=== PATIENT | female | born 1955 | race Caucasian/White ===

== ENCOUNTER 2016-08-14 18:13 | Inpatient (IN) | payer OTHER ==
[~2016-08-14] VITALS: Ht 154.9 cm; Wt 90.0 kg
[2016-08-14] MEDS ORDERED: SODIUM CHLORIDE 0.9% 1L BAG IV* STA (21:21)
[2016-08-14] MEDS ORDERED: ALBUTEROL 0.5% (NEB) 2.5 MG/0.5 ML AMP INH STA (21:22)
[2016-08-14] MEDS ORDERED: IBUPROFEN 600 MG TAB PO ONE (21:30)
[2016-08-14] MEDS ORDERED: AZITHROMYCIN 500MG/NS (PMX) 250 ML IVPB ONE (21:30)
[2016-08-14] MEDS ORDERED: CEFTRIAXONE 1 GM/50 ML (PMX) 50 ML IVPB ONE (21:30)
[2016-08-14] MEDS ORDERED: LOSA1TAB19 PO (21:52)
[2016-08-14] MEDS ORDERED: CLIN-73 PO (21:53)
[2016-08-14] MEDS ORDERED: MELO-110 PO (21:54)
[2016-08-14] MEDS ORDERED: MOME13HF INHALATION (21:54)
[2016-08-14] MEDS ORDERED: PRAV40TA76 PO (21:55)
[2016-08-14 21:57] LABS: BASOPHILS % 0.1 % (0.0-2.0); EOSINOPHILS % 0.4 % (0.0-7.0); HEMATOCRIT 37.8 % (37.0-47.0); HEMOGLOBIN 12.9 g/dl (12.0-16.0); LYMPHOCYTES # 0.9 10^3/ul (0.8-2.9); LYMPHOCYTES % 15.3 % (15.0-51.0); MEAN CORPUSCULAR HEMOGLOBIN 30.2 pg (29.0-33.0); MEAN CORPUSCULAR HGB CONC 34.1 g/dl (32.0-37.0); MEAN CORPUSCULAR VOLUME 88.5 fl (82.0-101.0); MEAN PLATELET VOLUME 7.9 fl (7.4-10.4); MONOCYTE # 0.5 10^3/ul (0.3-0.9); MONOCYTES % 8.8 % (0.0-11.0); NEUTROPHIL # 4.5 10^3/ul (1.6-7.5); NEUTROPHILS % 75.4 % (39.0-77.0); PLATELET COUNT 233 10^3/UL (140-440); RED BLOOD COUNT 4.27 10^6/ul (4.20-5.40); RED CELL DISTRIBUTION WIDTH 13.9 % (11.5-14.5)
[2016-08-14 21:59] LABS: CONDITION 1
[2016-08-14 22:05] LABS: ALBUMIN 4.3 g/dl (3.3-4.9); CHLORIDE 98 mmol/L (97-110); INR 0.96; PROTIME 12.8 Sec (12.2-14.2)
[2016-08-14 22:06] LABS: PARTIAL THROMBOPLASTIN TIME 30.8 Sec (25.0-35.0); POTASSIUM 3.8 mmol/L (3.5-5.1); SODIUM 137 mmol/L (135-144)
[2016-08-14 22:08] LABS: ALBUMIN/GLOBULIN RATIO 1.13; ALKALINE PHOSPHATASE 84 IU/L (42-121); ANION GAP 19 (8-16); ASPARTATE AMINO TRANSFERASE 33 IU/L (15-46); BILIRUBIN,INDIRECT 0.1 mg/dl (0-1.1); BILIRUBIN,TOTAL 0.1 mg/dl (0.2-1.3); BLOOD UREA NITROGEN 14 mg/dl (7-20); CARBON DIOXIDE 24 mmol/L (21-31); CREATININE 0.58 mg/dl (0.44-1.00); TOTAL PROTEIN 8.1 g/dl (6.1-8.1)
[2016-08-14 22:09] LABS: ALANINE AMINOTRANSFERASE 52 IU/L (13-69); CALCIUM 9.2 mg/dl (8.4-10.2); GLUCOSE 111 mg/dl (70-220)
[2016-08-14 22:20] LABS: TROPONIN-I < 0.012 ng/ml (0.00-0.12)
--- NOTE | 2016-08-14 22:40 | RADRPT ---
PROCEDURE: XR Chest. CLINICAL INDICATION: Cough and fever. Sepsis. TECHNIQUE: Single frontal view. COMPARISON: None. FINDINGS: There is mild atelectasis at the lung bases. The lungs are otherwise clear. The heart size is normal. There is no pleural effusion. There is no pneumothorax. IMPRESSION: 1. Mild atelectasis at the lung bases. 2. Otherwise normal chest x-ray. RPTAT: QQ .Douglas Araujo MD, MD Date Time Electronically viewed and signed by .Douglas Araujo MD, on 08/14/2016 22:40 .R/
[2016-08-14 22:56] LABS: ADD UMIC YES; URINE BILIRUBIN (Dip) NEGATIVE (NEGATIVE); URINE BLOOD (Dip) TRACE (NEGATIVE); URINE COLOR LT. YELLOW (YELLOW); URINE GLUCOSE (Dip) NEGATIVE (NEGATIVE); URINE KETONES (Dip) NEGATIVE (NEGATIVE); URINE LEUKOCYTE ESTERASE (Dip) NEGATIVE (NEGATIVE); URINE NITRITE (Dip) NEGATIVE (NEGATIVE); URINE TOTAL PROTEIN (Dip) NEGATIVE (NEGATIVE); URINE UROBILINOGEN (Dip) 0.2 E.U./dL (0.1-1.0)
--- NOTE | 2016-08-14 23:01 | ERA ---
ER Documentation Chief Complaint Date/Time DATE: 08/14/16 TIME: 22:54 Chief Complaint fever, sob and chest wall congestion for 10 days, 3rd day of atb today HPI 61-year-old woman presents with cough, congestion, fever, shortness of breath for about 1 week. She states she has been using antibiotics intermittently for the last few days that she had leftover at home. She has had no calf or leg swelling, no chest pain, no sore throat or difficulty swallowing. Patient denies abdominal pain, vomiting, or diarrhea. Patient has had no sick contacts or recent travel. ROS All systems reviewed and are negative except as per history of present illness. Medications Home Meds Reported Medications Pravastatin Sodium* (Pravastatin Sodium*) 40 Mg Tablet, 40 MG PO DAILY, TAB 08/14/16 Mometasone-Formoterol (Dulera) 200-5 Mcg/Inh - 13 Gm Hfa.aer.ad, 1 PUFFS INHALATION BID, #1 INHALER 08/14/16 Meloxicam* (Mobic*) 15 Mg Tablet, 15 MG PO DAILY, #30 TAB 08/14/16 Clindamycin Hcl* (Clindamycin Hcl*) 300 Mg Capsule, 300 MG PO Q8, CAP 08/14/16 Losartan-Hydrochlorothiazide (Losartan-HCTZ) 50-12.5 Mg Tab, 1 TAB PO DAILY, TAB 08/14/16 Allergies Allergies: Coded Allergies: codeine (Unverified Allergy, Unknown, 08/14/16) PMhx/Soc Hypertension, borderline diabetes mellitus History of Surgery: Yes (CHOLECYSTECTOMY 1990) Anesthesia Reaction: No Hx Neurological Disorder: No Hx Respiratory Disorders: No Hx Cardiac Disorders: Yes (HTN, DYSLIPIDEMIA) Hx Psychiatric Problems: No Hx Alcohol Use: No Hx Substance Use: No Hx Tobacco Use: No Smoking Status: Never smoker FmHx Family History: No diabetes Physical Exam Vitals Vital Signs Date Time Temp Pulse Resp B/P Pulse Ox O2 Delivery O2 Flow Rate FiO2 08/14/16 21:31 90 22 96 21 08/14/16 21:15 102.4 86 18 127/59 100 08/14/16 18:59 102.4 100 23 145/78 99 Physical Exam GENERAL: Well-developed, well-nourished, febrile, dehydrated, tachypnea HEENT: Dry mucous membranes, positive nasal congestion and rhinorrhea, pink conjunctiva, no cervical spine tenderness or step-off deformities, no goiter, no jaundice or icterus, extraocular movements intact without pain. No submandibular induration, and no pharyngeal erythema NEURO: Alert and oriented 3, cranial nerves II through XII intact bilaterally, pupils equal round reactive to light, no focal deficits or facial asymmetry, sensation intact distally Strength 5/5 in upper and lower extremities bilaterally CARDIAC: Tachycardic and regular, no murmurs rubs or gallops LUNGS: Bibasilar crackles and mild diffuse wheezing, no stridor ABDOMEN: Soft nontender, no guarding, no rigidity, no rebound, no psoas sign no obturator sign. Normoactive bowel sounds SKIN: Warm and dry to touch, no abrasions, contusions, or hematomas, no lacerations, no ecchymosis, no target lesions, and without ulcers EXTREMITIES: No clubbing cyanosis or edema, calves are bilaterally symmetrical, no Homans sign, no popliteal cord sign. Distal pulses equal and bilateral PSYCH: Normal affect without agitation or irritability Result Diagram: 08/14/16211908/14/162119 Results 24 hrs Laboratory Tests Test 08/14/16 21:20 Activated Partial Thromboplast Time 30.8Sec Alanine Aminotransferase (ALT/SGPT) 52IU/L Albumin 4.3g/dl Albumin/Globulin Ratio 1.13 Alkaline Phosphatase 84IU/L Anion Gap 19 Aspartate Amino Transf (AST/SGOT) 33IU/L Basophils # 0.010^3/ul Basophils % 0.1% Blood Urea Nitrogen 14mg/dl Calcium Level 9.2mg/dl Carbon Dioxide Level 24mmol/L Chloride Level 98mmol/L Creatinine 0.58mg/dl Direct Bilirubin 0.00mg/dl Eosinophils # 0.010^3/ul Eosinophils % 0.4% Globulin 3.80g/dl Glucose Level 111mg/dl Hematocrit 37.8% Hemoglobin 12.9g/dl INR International Normalized Ratio 0.96 Indirect Bilirubin 0.1mg/dl Lactic Acid Level 2.3mmol/L Lipase 61U/L Lymphocytes # 0.910^3/ul Lymphocytes % 15.3% Mean Corpuscular Hemoglobin 30.2pg Mean Corpuscular Hemoglobin Concent 34.1g/dl Mean Corpuscular Volume 88.5fl Mean Platelet Volume 7.9fl Monocytes # 0.510^3/ul Monocytes % 8.8% Neutrophils # 4.510^3/ul Neutrophils % 75.4% Nucleated Red Blood Cells # 0.010^3/ul Nucleated Red Blood Cells % 0.0/100WBC Platelet Count 32217^3/UL Potassium Level 3.8mmol/L Prothrombin Time 12.8Sec Prothrombin Time Ratio 1.0 Red Blood Count 4.2710^6/ul Red Cell Distribution Width 13.9% Sodium Level 137mmol/L Total Bilirubin 0.1mg/dl Total Protein 8.1g/dl Troponin I < 0.012ng/ml White Blood Count 6.010^3/ul Current Medications Medications (Trade) Dose Ordered Sig/Elaine Route PRN Reason Start Time Stop Time Status Last Admin Dose Admin Sodium Chloride 3000 ml 3,000 ml BOLUS OVER 2 HOURS STAT IV* 08/14/16 21:21 08/14/16 21:23 DC 08/14/16 21:41 Ceftriaxone Sodium 50 ml @ 100 mls/hr ONCE ONCE IVPB 08/14/16 21:30 08/14/16 21:59 DC 08/14/16 21:40 Azithromycin (Zithromax 500mg/ NS (Pmx)) 250 ml @ 250 mls/hr ONCE ONCE IVPB 08/14/16 21:30 08/14/16 22:29 DC 08/14/16 21:40 Ibuprofen (Motrin) 600 mg ONCE ONCE PO 08/14/16 21:30 08/14/16 21:31 DC 08/14/16 21:40 Albuterol (Proventil 0.5% (Neb)) 5 mg ONCE STAT INH 08/14/16 21:22 08/14/16 21:23 DC 08/14/16 21:31 Procedures/MDM IV line was established patient was placed on cardiac rehabilitation program director rhythm strip revealed a sinus tachycardia at 100 bpm with upright P and T waves. Patient was febrile. Blood and urine cultures have been ordered results are pending I will follow-up. I administered about 3 L normal saline intravenously, ceftriaxone 1 g IV, azithromycin 500 mg IV, albuterol 10 mg via nebulizer, and ibuprofen 600 mg p.o. for fever. EKG performed, read by me: 89 bpm, normal sinus rhythm, normal axis, no acute ST segment changes, narrow QRS complex, with good R-wave progression in precordial leads. One view chest x-ray performed, read by me there is atelectatic changes bilaterally with the left lower lobe infiltrate, no pneumothorax, no end of the diaphragm. CBC is unremarkable, electrolytes are within normal limits, liver function tests were normal, troponin was negative. Lactic acid elevated at 2.3. Influenza AB swabs have also been ordered results are pending I will follow-up. Patient's infectious symptoms have not stabilized and the patient is at risk of rapid decompensation. The patient will be admitted for careful hydration, antibiotic therapy, and infectious source control. Severe Sepsis Assessment: Infectious Source: Pulmonary Severe Sepsis Managment: Blood Cultures X 2 before broad spectrum antibiotics initiated within 3 hours of recognition. 30 ml/kg NS bolus Completed Initial Lactate: 2.3 Repeat Lactate pending Critical Care: Time: 30 minutes, this was time separate from other procedures Treatments/Evaluations: Emergent fluid management, while maintaining close respiratory support. Immediate broad spectrum antibiotic therapy. Simultaneous assessment for possible sources in order to direct therapy. Consideration for invasive and chemical support to prevent respiratory or cardiac collapse. Septic Shock Assessment (1 hour post 30 ml/kg fluid bolus): Hypotension (SBP < 90 or 40 mmHg drop, MAP < 65): No Lactic acid > 4.0 No Perfusion Reassessment for Septic Shock: Temp afebrile, Pulse 70, RR 16, BP 120/80 Heart Exam: Regular rate Lung Exam: No Crackles Capillary Refill: Less than 2 Peripheral Pulses: Radially present Skin: Warm and pink I considered further perfusion assessment with CVP measurement, SCVO2, bedside ultrasound volume assessment, passive leg raise, trial of further fluid bolus. And preceded with IV fluids and IV antibiotic Accepting Care Team: Current data and ongoing care discussed. Time: Time of admission Primary Provider: Dr. Jalloh out of [facility] Consulting: Pulmonology Outstanding Data: none Departure Diagnosis: Primary Impression: Sepsis Qualified Code: A41.9 - Sepsis, due to unspecified organism Additional Impressions: Reactive airway disease Qualified Code: J45.41 - Reactive airway disease, moderate persistent, with acute exacerbation Pneumonia Qualified Code: J18.9 - Pneumonia of left lower lobe due to infectious organism Condition: CHARLES Mora MD Aug 14, 2016 23:00
[2016-08-14 23:12] LABS: SQUAMOUS EPITHELIAL CELL,UR RARE; URINE RBCS 0-2 /HPF (0)
[2016-08-15 03:06] VITALS: TEMP 98.7
[2016-08-15 04:23] VITALS: Ht 154.9 cm; Wt 90.0 kg
[2016-08-15 04:57] VITALS: BP 145/64; PULSE 77; RESP 19
[2016-08-15] MEDS ORDERED: ACETAMINOPHEN 325 MG TAB PO PRN (06:30)
[2016-08-15] MEDS ORDERED: ONDANSETRON 4 MG INJ IV PRN (06:30)
[2016-08-15] MEDS ORDERED: ZOLPIDEM 5 MG TAB PO PRN (06:30)
[2016-08-15] MEDS ORDERED: CEFTRIAXONE 1 GM INJ IVPB SCH (09:00)
[2016-08-15] MEDS: CEFTRIAXONE 1 GM/NS 50 ML IVPB SCH (09:45)
--- NOTE | 2016-08-15 15:08 | QN ---
Documentation Comment [id number] BORIS YATES MD Aug 15, 2016 15:08
--- NOTE | 2016-08-15 15:28 | HP ---
DATE OF ADMISSION: 08/15/2016 HISTORY OF PRESENT ILLNESS: The patient has history of hypertension, history of cholecystectomy, presented to this hospital with cough, short of breath. Chest x-ray done in the ER shows mild atelectasis at lung bases, otherwise normal chest x-ray and patient was seen by Dr. Koroma in the ER for cough, congestion, fever, short of breath for almost a week and the patient's sodium 137, potassium 3.8. WBC 6. Patient is admitted with diagnosis of sepsis. PAST MEDICAL HISTORY: Positive for cholecystectomy, hypertension. ALLERGIES: CODEINE. SOCIAL HISTORY: Negative. FAMILY HISTORY: Negative. MEDICATIONS AT HOME: 1. Patient is on clindamycin. 2. Hydrochlorothiazide. 3. Losartan. 4. Potassium. 5. Meloxicam. 6. Meloxicam. 7. Formoterol. 8. Pravachol. REVIEW OF SYSTEMS: HEENT: Unremarkable. RESPIRATORY: As mentioned shortness of breath. CARDIOVASCULAR: No chest pain, palpitation. ABDOMEN: No dyspepsia. EXTREMITIES: No swelling. CENTRAL NERVOUS SYSTEM: Unremarkable. PHYSICAL EXAMINATION: GENERAL: Obese female, awake, alert. VITAL SIGNS: Pulse 77, blood pressure 136_/54. HEAD: Atraumatic, normocephalic. Pupils equal, reactive to light. NECK: Supple. No JVD. LUNGS: A few rhonchi. CARDIOVASCULAR: S1, S2 normal. ABDOMEN: Soft, nontender. Bowel sounds present. No palpable mass or hepatosplenomegaly. No guarding, rebound tenderness. EXTREMITIES: There is no cyanosis, clubbing, or edema. CENTRAL NERVOUS SYSTEM: The patient is awake, alert, no focal deficit. LABORATORY DATA: As mentioned above. IMPRESSION: Patient has systemic inflammatory response syndrome, lactic acidosis, lung atelectasis. PLAN: At this point is to continue patient is on Protonix, Rocephin, Ambien. The patient will be continued on this. Dictated By: BORIS PIKE/AYLA Conf#: [id number] DID#: [id number]
[2016-08-15] MEDS ORDERED: IBUPROFEN 600 MG TAB PO PRN (16:00)
[2016-08-15] MEDS: OSELTAMIVIR 75 MG CAP PO SCH ×2 (16:00→22:40)
[2016-08-15 20:50] VITALS: BP 141/65; RESP 18
[2016-08-16] MEDS: PANTOPRAZOLE 40 MG INJ IV SCH (05:57)
[2016-08-16] MEDS: AZITHROMYCIN 500MG/NS (PMX) 250 ML IV SCH (05:57)
[2016-08-16 08:27] VITALS: BP 143/63; RESP 20
[2016-08-16] MEDS: CEFTRIAXONE 1 GM/NS 50 ML IVPB SCH (09:17)
[2016-08-16] MEDS: OSELTAMIVIR 75 MG CAP PO SCH ×2 (09:19→20:30)
--- NOTE | 2016-08-16 20:09 | PN ---
Date/Time of Note Date/Time of Note DATE: 08/16/16 TIME: 20:09 Assessment/Plan VTE Prophylaxis VTE Prophylaxis Intervention: other Lines/Catheters IV [facility] Urinary Cath still in place: No Assessment/Plan Chief Complaint/Hosp Course SIRS INFLUENZA INF PLAN ANTIBIOTIC Problems: Subjective 24 Hr Interval Summary Cardiovascular: no complaints Gastrointestinal: no complaints Genitourinary: no complaints Exam/Review of Systems Vital Signs Vitals Vital Signs Date Time Temp Pulse Resp B/P Pulse Ox O2 Delivery O2 Flow Rate FiO2 08/16/16 08:27 97.9 65 20 143/63 97 08/15/16 04:57 Room Air 08/14/16 21:31 21 Intake and Output 08/15/16 08/15/16 08/16/16 15:00 23:00 07:00 Intake Total 50 ml 880 ml 600 ml Balance 50 ml 880 ml 600 ml Exam Neck: supple Respiratory: clear to auscultation Cardiovascular: regular rate and rhythm Gastrointestinal: soft Results Result Diagram: 08/14/16211908/14/162119 Medications Medications Current Medications Pantoprazole (Protonix Iv) 40 mg DAILY@06 IV Last administered on 08/16/16 05: 57; Admin Dose 40 MG; Start 08/16/16 at 06:00 Ondansetron HCl (Zofran Inj) 4 mg Q4H PRN IV NAUSEA AND/OR VOMITING; Start at 06:30 Acetaminophen (Tylenol Tab) 650 mg Q4H PRN PO PAIN AND OR ELEVATED TEMP; Start 08/15/16 at 06:30 Zolpidem Tartrate 5 mg 5 mg HS PRN PO INSOMNIA; Start 08/15/16 at 06:30 Ceftriaxone Sodium (Rocephin) 50 ml @ 100 mls/hr Q24H IVPB Last administered on 08/16/16 09:17; Admin Dose 100 MLS/HR; Start 08/15/16 at 09:30 Oseltamivir Phosphate (Tamiflu) 75 mg BID PO Last administered on 08/16/16 09: 19; Admin Dose 75 MG; Start 08/15/16 at 16:00 Ibuprofen 600 mg 600 mg BID PRN PO pain Last administered on 08/15/16 16:14; Admin Dose 600 MG; Start 08/15/16 at 16:00 Azithromycin (Zithromax 500mg/ NS (Pmx)) 250 ml @ 250 mls/hr Q24H IV Last administered on 08/16/16t 05:57; Admin Dose 250 MLS/HR; Start 08/16/16 at 06:00 BORIS YATES MD Aug 16, 2016 20:09
[2016-08-16 20:19] VITALS: BP 164/74; RESP 19
[2016-08-16 20:20] VITALS: BP 162/72; PULSE 75
[2016-08-16] MEDS ORDERED: LOSARTAN 50 MG TAB PO ONE (20:30)
[2016-08-16 21:30] VITALS: BP 140/63; PULSE 76
[2016-08-17] MEDS: PANTOPRAZOLE 40 MG INJ IV SCH (05:41)
[2016-08-17] MEDS: AZITHROMYCIN 500MG/NS (PMX) 250 ML IV SCH (05:41)
[2016-08-17 07:52] VITALS: BP 132/65; RESP 18
[2016-08-17] MEDS: CEFTRIAXONE 1 GM/NS 50 ML IVPB SCH (08:19)
[2016-08-17] MEDS: OSELTAMIVIR 75 MG CAP PO SCH (08:19)
[2016-08-17] MEDS ORDERED: LOSARTAN 50 MG TAB PO SCH (09:00)
--- NOTE | 2016-08-17 12:59 | PDOCDIS ---
Discharge Instructions CONDITION Patient Condition: Stable HOME CARE INSTRUCTIONS: Special Diet: regular ACTIVITY: Activity Restrictions: Slowly Increase Activity FOLLOW UP/APPOINTMENTS Appointments f/u own pcp 1 wk BORIS YATES MD Aug 17, 2016 12:58
[2016-08-17] MEDS ORDERED: OSLT75C PO (13:00)
[2016-08-17] MEDS ORDERED: LEVO500T72 PO (13:00)
--- NOTE | 2016-08-17 23:14 | QN ---
Documentation Comment [id number] BORIS YATES MD Aug 17, 2016 23:14
[2016-08-18] MEDS ORDERED: PANTOPRAZOLE (EC) 40 MG TAB PO SCH (06:00)
--- NOTE | 2016-08-18 15:43 | DS ---
DATE OF ADMISSION: 08/15/2016 DATE OF DISCHARGE: 08/17/2016 HISTORY OF PRESENT ILLNESS: The patient was admitted with cough, short of breath, noted to have an infiltrate, atelectasis, also influenza and infection and started on antibiotics, also Tamiflu. The patient's symptoms are resolving. The patient was cleared to be discharged home. Patient will hav e further workup as an outpatient. DISCHARGE DIAGNOSES: 1. Lung infiltrate. 2. Influenza. 3. Pneumonia. DISCHARGE MEDICATIONS: Patient to continue on: 1. Levofloxacin. 2. Tamiflu. Home medications were reconciled. Patient to follow with own PCP in 1 to 2 weeks. DISPOSITION: Patient is stable at the time of discharge. Dictated By: BORIS PIKE/AYLA Conf#: [id number] DID#: [id number]
== END 2016-08-17 18:04 | disposition home or self-care (01) | DRG 195 ==
LOC: E/R 18:13 → PP2 08-15 01:46
PROVIDERS: ADMIT Internal Medicine Nephrology; ATTEND Internal Medicine Nephrology
DX: J11.00 Influenza due to unidentified influenza virus with unspecified type of pneumonia (principal); I10 Essential (primary) hypertension; E66.9 Obesity, unspecified; Z68.37 Body mass index [BMI] 37.0-37.9, adult
CPT/HCPCS: 36415; 71010; 80053; 81001; 81003; 83605; 83690; 84484; 85025; 85610; 85730; 87040; 87086; 87400; 93005; 94644; 94664; 96374; 96375; C9113; J0456; J0696; J7030